=== PATIENT | female | born 1965 | race Two or more races ===

== ENCOUNTER 2020-07-19 15:33 | Emergency (ER) | payer MEDICAID ==
[~2020-07-19] VITALS: Ht 162.6 cm; Wt 100.0 kg
[2020-07-19] MEDS ORDERED: ZINC220C14 PO (15:43)
[2020-07-19] MEDS ORDERED: ASCO500 PO (15:43)
[2020-07-19] MEDS ORDERED: ACETAMINOPHEN 500 MG TABLET PO ONE (16:00)
[2020-07-19 20:08] VITALS: BP 151/81
== END 2020-07-19 21:43 | disposition home or self-care (01) ==
LOC: EMS 15:33 → EDBD 15:33 → EMS 21:43
DX: U07.1 COVID-19 (principal)
CPT/HCPCS: 71045; 99284; U0003